=== PATIENT | male | born 1995 | race Caucasian/White ===

== ENCOUNTER 2021-05-27 14:03 | Emergency (ER) | payer OTHER ==
[2021-05-27 14:31] VITALS: BP 146/79
[2021-05-27] MEDS ORDERED: BUFFERED LIDOCAINE 10 ML SYRINGE IU ONE (14:33)
--- NOTE | 2021-05-27 14:36 | ED Physician Documentation ---
History of Present Illness - Stated complaint Stated Complaint: LEFT HAND INJURY - Chief complaint Chief Complaint: Laceration - History obtained from History obtained from: Patient - Additonal information Additional information: Patient comes emergency department chief complaint of laceration to left hand. He states he was putting some [employer] furniture together when a screw burst through and plunged into his first webspace. Patient denies any difficulty moving his thumb or second digit. Incident happened just before the patient came here. He is up-to-date on tetanus. No other complaints at this time. Review of Systems Ten Systems: 10 systems reviewed and negative Constitutional: reports: Reviewed and negative Eyes: reports: Reviewed and negative Ears: reports: Reviewed and negative Nose: reports: Reviewed and negative Throat: reports: Reviewed and negative Cardiac: reports: Reviewed and negative Respiratory: reports: Reviewed and negative GI: reports: Reviewed and negative : reports: Reviewed and negative Skin: reports: Laceration (s) Musculoskeletal: reports: Reviewed and negative Neurologic: reports: Reviewed and negative Psychiatric: reports: Reviewed and negative Endocrine: reports: Reviewed and negative Immunocompromised: reports: Reviewed and negative PD PAST MEDICAL HISTORY - Present Medications Home Medications: Ambulatory Orders Medication Instructions Recorded Confirmed No Known Home Medications 05/27/21 05/27/21 - Allergies Allergies/Adverse Reactions: Allergies Allergy/AdvReac Type Severity Reaction Status Date / Time No Known Drug Allergies Allergy Verified 05/27/21 14:28 PD ED PE NORMAL - Vitals Vital signs reviewed: Yes - General General: Alert and oriented X 3, No acute distress, Well developed/nourished - HEENT HEENT: Atraumatic, PERRL, EOMI, Moist mucous membranes - Neck Neck: Supple, no meningeal sign - Cardiac Cardiac: Strong equal pulses - Respiratory Respiratory: No respiratory distress - Derm Derm: Normal color, Warm and dry, No rash, Other (7 mm long stellate laceration of palmar aspect of first webspace left hand. No foreign body. 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, No motor deficit, No sensory deficit, Normal speech - Psych Psych: Normal mood, Normal affect Results - Vitals Vitals: Vital Signs - 24 hr 05/27/21 14:28 Temperature 36.7 C Heart Rate 66 Respiratory 18 Rate Blood Pressure 146/79 H O2 Saturation 100 Oxygen O2 Source Room air Procedures - Laceration (location) L hand Length in cm: 0.7 Wound type: Stellate Neurovascular status: Sensory intact, Motor intact, Vascular intact Tendon involvement: Tendon intact Anesthesia: Lidocaine 1% Wound preparation: Betadine, Irrigated copiously NS, Wound explored, To the base Skin layer closure: Nylon, Interrupted, Size #-0 - enter number (4.0), Sutures - enter # (2) Other: Patient tolerated well, No complications, Neurovascular intact, Tetanus UTD PD MEDICAL DECISION MAKING - ED course Complexity details: considered differential, d/w patient ED course: Laceration was repaired as above. We have discussed timeline for suture removal which should be in 5 days. Discussed the usual indications for return. Departure - Departure Disposition: 01 Home, Self Care Clinical Impression: Laceration Condition: Stable Instructions: ED Laceration Hand Comments: Your wound has been repaired today with 2 synthetic sutures. These have better tensile strength, but are not absorbable, and will need to be removed in 5 to 7 days. You may allow water and soap to run over the wound but please do not rub, scrub, or immerse the wound until the sutures are removed. This is in order to prevent infection. You may apply an antibiotic ointment, such as Neosporin, and to the wound and you may cover it if needed. Once the scab is dry, you may leave it open to air. You should go to a medical facility, such as urgent care/walk-in clinic, your primary doctor's office, or the emergency department to have the sutures removed. If you develop redness or swelling spreading progressively away from the wound, or if the wound opens and looks "mushy" or drains, you should have it rechecked.
== END 2021-05-27 15:28 | disposition home or self-care (01) ==
LOC: ED 14:03
DX: S61.412A Laceration without foreign body of left hand, initial encounter (principal); W45.0XXA Nail entering through skin, initial encounter; Y93.89 Activity, other specified
CPT/HCPCS: 12001; 99281